=== PATIENT | female | born 1990 | race Caucasian/White ===

== ENCOUNTER 2017-02-24 18:49 | Emergency (ER) | payer BC ==
[~2017-02-24] VITALS: Ht 160 cm; Wt 54.4 kg
[~2017-02-24 18:49] MED LIST: B12,B-12,B 12500 MC1 PO; BACTRIM DS 8001 TA1 PO; CLARITIN10 MG PO; LOESTRIN 21 1.51 TAB PO; LOMOTIL 0.025 M1 TA1 PO; MACROBID100 M1 PO; NAPROSYN375 MG PO; PROTONIX20 MG PO; SINGULAIR10 MG PO; ZITHROMAX Z PA250 MG PO; ZOFRAN ODT4 MG SL; ZOFRAN4 MG PO; Zofran4 MG PO
== END 2017-02-24 20:07 | disposition home or self-care (01) ==
LOC: ED 18:49
DX: J98.01 Acute bronchospasm (principal); F41.9 Anxiety disorder, unspecified; Z88.0 Allergy status to penicillin; Z79.899 Other long term (current) drug therapy